=== PATIENT | male | born 1985 | race Caucasian/White ===

== ENCOUNTER 2021-01-07 12:45 | Emergency (ER) | payer SELFPAY ==
[2021-01-07 13:19] VITALS: BP 159/92; PULSE 84; RESP 16; TEMP 36.4; O2SAT 98; BMI 23.6
--- NOTE | 2021-01-07 13:31 | ED_ITS ---
HPI - GI Bleed General: Chief complaint: GI Bleed Stated complaint: blood in stool Time Seen by Provider: 01/07/21 13:22 History of Present Illness: HPI Narrative: 35-year-old male presents emergency room with complaint of 2 episodes of bright red blood per rectum. No history of hemorrhoids no history of previous GI bleed no previous colonoscopy. He does not have any abdominal pain both episodes were painless completely discolored the toilet water. He has not had any vomiting associated with it or any real diarrhea. MD complaint: gross hematochezia Onset (ago): hour(s) Severity: moderate Relieving factors: none Associated symptoms: Denies abdominal pain, chills, easy bruising, epistaxis, fever(s), headache(s), malaise, nausea, other bleeding, poor appetite, rash, syncope, vomiting or weakness Treatments Prior to Arrival: none Review of Systems Const: Denies: fever(s) or malaise ENMT: Denies: epistaxis Card: Denies: syncope Resp: Denies: dyspnea, productive cough or non-productive cough GI: Reports: hematochezia; Denies: abdominal pain, nausea, vomiting or hematemesis : Denies: flank pain, dysuria, urinary frequency or urinary urgency Skin/Breast: Denies: rash Neuro: Denies: headache(s) Jackson/Lymph: Denies: easy bruising PFSH ED PFSH: Social History Smoking and tobacco status: current every day smoker cigarettes Packs smoked per day: 0.5 Alcohol intake: never Substance/Drug Use: never Physical Exam Const: COMMON NORMALS: no acute distress GENERAL APPEARANCE: cooperative and comfortable ORIENTATION/CONSCIOUSNESS: Yes awake, Yes oriented to person, Yes oriented to place and Yes oriented to time HENMT: COMMON NORMALS: normocephalic, atraumatic and hearing grossly normal bilaterally HEAD & SCALP: normocephalic and atraumatic Neck/C-Spine: COMMON NORMALS: no JVD Resp: COMMON NORMALS: normal respiratory effort, No retractions, No use of accessory muscles and clear to auscultation bilaterally AUSCULTATION: clear to auscultation bilaterally Cardio: COMMON NORMALS: no JVD, regular rate, regular rhythm and No murmurs present (Cardio) RATE: regular rate RHYTHM: regular rhythm GI: COMMON NORMALS: Soft to palpation and No hepatosplenomegaly present INSPECTION: No Laceration(s) present (GI) AUSCULTATION: Yes normoactive bowel sounds PALPATION: Yes Soft to palpation, No Tenderness to palpation present (GI), No Guarding due to palpation present (GI) and Yes No hepatosplenomegaly present RECTAL EXAM: Yes visual inspection normal, Yes normal sphincter tone, No hemorrhoids, No Rectal prolapse, No Lesions present (GI), No Fistula present (GI), No Laceration(s) present (GI), No Excoriation present (GI) and No Anal fissure(s) present Extremity: COMMON NORMALS: normal to inspection, capillary refill normal, no clubbing, cyanosis or edema, no calf tenderness and no pedal edema Neuro: SENSORIUM/ORIENTATION: Yes oriented to person, Yes oriented to place and Yes oriented to time Skin: COMMON NORMALS: no rashes or lesions noted GENERAL SKIN EXAM: no rashes or lesions noted Course Vital Signs: Vital signs: Vital Signs Temperature 97.5 F L 01/07/21 13:19 Pulse Rate 84 01/07/21 13:19 Respiratory Rate 16 01/07/21 13:19 Blood Pressure 159/92 01/07/21 13:19 Pulse Oximetry 98 01/07/21 13:19 MDM - GI Bleed MDM Narrative: Medical decision making narrative: Ongoing start him on Cipro and metronidazole for 7 days we will get him set up for a colonoscopy his hem oglobin is stable at this point he does not have any abdominal pain per se. If he has any worsening or change symptoms recheck would likely have him recheck with his primary care doctor within a week sooner if has any continues to have bloody bowel movements. Did advise him to clear liquid diet for 24 to 48 hours and advance as tolerated Lab Data: Labs: Lab Results 01/07/21 01/07/21 Range/Units 13:40 13:40 WBC 7.6 (4.0-10.0) 10^3/ uL RBC 4.68 (4.1-5.3) 10^6/u L Hgb 13.2 (11.7-16.6) g/dL Hct 41.4 L (42.0-52.0) % MCV 88.5 (80-94) fL MCH 28.2 (28.0-34.0) pg MCHC 31.9 (30.0-36.0) g/dL RDW 13.3 (12.1-15.1) % Plt Count 361 (130-400) 10^3/c mm MPV 9.2 (7.4-10.4) fL Neut % (Auto) 55.1 % Lymph % (Auto) 32.8 % [place] % (Auto) 6.5 % Eos % (Auto) 4.4 % Baso % (Auto) 1.1 % Neut # (Auto) 4.18 (1.8-7.7) 10^3/u L Lymph # (Auto) 2.5 (0.8-4.8) 10^3/u L Arthur # (Auto) 0.5 (0.2-0.9) 10^3/u L Eos # (Auto) 0.3 (0.0-0.8) 10^3/u L Baso # (Auto) 0.1 (0.0-0.1) 10^3/u L Nucleated RBC % (a uto) 0 % Nucleated RBCs # 0.0 /100WBC Sodium 135 L (136-145) mmol/L Potassium 4.2 (3.5-5.1) mmol/L Chloride 101 (98-107) mmol/L Carbon Dioxide 25 (22-29) mmol/L Anion Gap 13.2 (5-19) BUN 14 (6-20) mg/dL Creatinine 0.5 L (0.7-1.2) mg/dL GFR Calculation 188.1 H (90-130) mL/min Glucose 87 (65-115) mg/dL Calculated Osmolal ity 280 L (285-295) mOsm/k g Calcium 9.1 (8.5-10.5) mg/dL Total Bilirubin 0.2 (0.15-1.2) mg/dL AST 16 (0-40) U/L ALT 18 (0-41) U/L Alkaline Phosphata se 96 (40-130) IU/L Total Protein 7.1 (6.6-8.7) g/dL Albumin 4.0 (3.5-5.2) g/dL Globulin 3.1 (1.3-4.6) g/dL Lipase 39 (13-60) U/L Discharge Plan Discharge Patient Disposition: Home Clinical Impression: Bright red blood per rectum Condition: Stable Prescriptions: New Cipro 500 mg tablet 500 mg PO BID Qty: 14 RF: 0 metronidazole 500 mg tablet 500 mg PO BID 7 Days Qty: 14 RF: 0 Discharge Orders: Discharge ED (Routine); Ordered 01/07/21 Ordered By: Rustam Ghosh Referrals: Mustapha Swain MD [Primary Care Provider] - Discharge Diet: Clear Liquid Discharge Activity: Resume usual activity Patient Instructions: Opioid Safety Activity Restrictions/Additional Instructions: Clinical diet for 24 to 48 hours then advance as tolerated. Case management will call to set up an appointment for you to get a colonoscopy. Coding Level of Care Code ED Doctor Of Nursing Practice for Marting Fwd Exam Comprehensive
[2021-01-07 13:47] LABS: Basophils # 0.1 10^3/uL (0.0-0.1); Basophils % 1.1 %; Eosinophils # 0.3 10^3/uL (0.0-0.8); Eosinophils % 4.4 %; Hematocrit 41.4 % (42.0-52.0); Hemoglobin 13.2 g/dL (11.7-16.6); Lymphocytes # 2.5 10^3/uL (0.8-4.8); Lymphocytes % 32.8 %; Mean Corpuscular HGB Conc 31.9 g/dL (30.0-36.0); Mean Corpuscular Hemoglobin 28.2 pg (28.0-34.0); Mean Corpuscular Volume 88.5 fL (80-94); Mean Platelet Volume 9.2 fL (7.4-10.4); Monocytes # 0.5 10^3/uL (0.2-0.9); Monocytes % 6.5 %; Neutrophils # 4.18 10^3/uL (1.8-7.7); Neutrophils % 55.1 %; Nucleated Red Blood Cells % 0 %; Platelet Count 361 10^3/cmm (130-400); Red Blood Count 4.68 10^6/uL (4.1-5.3); Red Cell Distribution Width 13.3 % (12.1-15.1); White Blood Count 7.6 10^3/uL (4.0-10.0)
[2021-01-07 14:11] LABS: Alanine Aminotransferase 18 U/L (0-41); Alkaline Phosphatase 96 IU/L (40-130); Anion Gap 13.2 (5-19); Aspartate Amino Transferase 16 U/L (0-40); Blood Urea Nitrogen 14 mg/dL (6-20); Calcium 9.1 mg/dL (8.5-10.5); Carbon Dioxide 25 mmol/L (22-29); Chloride 101 mmol/L (98-107); Globulin 3.1 g/dL (1.3-4.6); Glomerular Filtration Rate 188.1 mL/min (90-130); Glucose 87 mg/dL (65-115); Lipase 39 U/L (13-60); Osmolality Calculated 280 mOsm/kg (285-295); Potassium 4.2 mmol/L (3.5-5.1); Sodium 135 mmol/L (136-145); Total Bilirubin 0.2 mg/dL (0.15-1.2); Total Protein 7.1 g/dL (6.6-8.7)
[2021-01-07] MEDS: sodium chloride 0.9% 1,000 ML 999 ML IV (14:35)
--- NOTE | 2021-01-08 11:37 | DCPLANNER ---
manager validation had message to schedule a follow up appointment for patient with general surgery for a colonoscopy. manager validation emailed patients information to both Jina and Lilibeth at [facility] General Surgery. Patients information will be printed and reviewed. Clinic will call patient with appointment information.
--- NOTE | 2021-01-11 07:56 | DCPLANNER ---
Patient has a follow up appointment scheduled for Thursday, January 14, 2021 at 2:[address] Peck, at [facility] General Surgery. Clinic will call patient with appointment information.
--- NOTE | 2021-01-15 15:40 | DCPLANNER ---
Patient had a follow up appointment scheduled for 01.14.[address] Esteban at general surgery - patient did attend appointment.
== END 2021-01-07 16:00 | disposition home or self-care (01) ==
PROVIDERS: Emergency Provider Family Medicine; PCP Family Medicine
DX: K62.5 Hemorrhage of anus and rectum (principal); F17.210 Nicotine dependence, cigarettes, uncomplicated
CPT/HCPCS: 80053; 83690; 85025; 96360; 99283; J7030

== ENCOUNTER 2021-01-29 12:56 | Emergency (ER) | payer SELFPAY ==
[2021-01-29 13:12] VITALS: BP 129/77; PULSE 106; RESP 16; TEMP 36.6; O2SAT 98; BMI 21.1
--- NOTE | 2021-01-29 13:17 | W.ED.GIBLEED ---
HPI - GI Bleed General: Chief complaint: GI Bleed Stated complaint: BLOOD IN STOOL Time Seen by Provider: 01/29/21 13:00 Source: patient Mode of arrival: ambulatory Limitations: no limitations History of Present Illness: HPI Narrative: Patient is a 35-year-old male who presents to ED today for evaluation of possible GI bleeding. Patient was initially seen a few weeks ago for bright red blood per rectum. He was subsequently referred to Dr. Peck and is currently scheduled to undergo endoscopy/colonoscopy on 02/20. Patient tells me the bright red bleeding only was present for a few days. He states since then he has been having darker red stools. Has also noticed stools are looser than normal. He has absolutely no pain. No fevers. Does feel more fatigued. Complains of some mild dizziness. MD complaint: other (dark red stools) Onset (ago): day(s) Pain Consistency: other (no pain) Relieving factors: none Exacerbating factors: none Associated symptoms: Denies abdominal pain, chills, fever(s), headache(s), malaise, nausea, rash or vomiting Treatments Prior to Arrival: none Review of Systems Const: Reports: fatigue; Denies: fever(s), chills, body aches or malaise Eyes: Denies: change in vision or blurry vision ENMT: Denies: throat pain or odynophagia Card: Denies: chest pain Resp: Denies: dyspnea GI: Reports: hematochezia and other (feels like he needs to defecate more often); Denies: abdominal pain, nausea, vomiting, hematemesis, coffee ground emesis, dysphagia, heartburn, fecal incontinence, pain on defecation, rectal pain, white/light colored stool or steatorrhea : Denies: dysuria or hematuria Musc: Denies: back pain Skin/Breast: Denies: rash Neuro: Reports: dizziness (occasional); Denies: headache(s) PFSH ED PFSH: Social History Smoking and tobacco status: current every day smoker cigarettes Packs smoked per day: 0.5 Alcohol intake: never Physical Exam Const: COMMON NORMALS: no acute distress, average body habitus, patient oriented x3, no limitations, healthy appearing, alert and well nourished GENERAL APPEARANCE: cooperative ORIENTATION/CONSCIOUSNESS: Yes awake, Yes oriented to person, Yes oriented to place and Yes oriented to time HENMT: COMMON NORMALS: normocephalic and atraumatic HEAD & SCALP: normocephalic and atraumatic Eye: COMMON NORMALS: no scleral icterus GENERAL EYE: appearance normal, both eyes and all related structures Resp: COMMON NORMALS: normal respiratory effort and clear to auscultation bilaterally AUSCULTATION: clear to auscultation bilaterally Cardio: COMMON NORMALS: regular rhythm RATE: tachycardic (very mild) RHYTHM: regular rhythm GI: COMMON NORMALS: Normal to inspection, nondistended, normoactive bowel sounds present, Soft to palpation, non-tender, No hepatosplenomegaly present and no masses PALPATION: Yes Soft to palpation and Yes No hepatosplenomegaly present RECTAL EXAM: Yes visual inspection normal and Yes heme negative stool (although no stool palpated ) Extremity: COMMON NORMALS: normal to inspection Neuro: COMMON NORMALS: patient oriented x3 SENSORIUM/ORIENTATION: Yes alert, Yes oriented to person, Yes oriented to place and Yes oriented to time Skin: COMMON NORMALS: no rashes or lesions noted GENERAL SKIN EXAM: no rashes or lesions noted OTHER: no pallor or jaundice noted Course Vital Signs: Vital signs: Vital Signs Temperature 97.9 F 01/29/21 13:12 Pulse Rate 84 01/29/21 13:49 Respiratory Rate 16 01/29/21 13:12 Blood Pressure 125/70 01/29/21 13:49 Pulse Oximetry 98 01/29/21 13:12 MDM - GI Bleed MDM Narrative: Medical decision making narrative: Patient's hemoccult is negative. His hemoglobin is 14 which is higher than his last visit. Remainder of labs are non-concerning. He was mildly tachycardic. His orthostatic blood pressures are normal. He did have a rise in Heart rate however this is not high enough for diagnosis of postural tachycardia. Recommend current plan for endoscopy/colonoscopy with Dr. Peck. Return to ED precautions given. Lab Data: Labs: Lab Results 01/29/21 01/29/21 Range/Units 13:37 13:37 WBC 8.2 (4.0-10.0) 10^3/ uL RBC 4.97 (4.1-5.3) 10^6/u L Hgb 14.0 (11.7-16.6) g/dL Hct 43.7 (42.0-52.0) % MCV 87.9 (80-94) fL MCH 28.2 (28.0-34.0) pg MCHC 32.0 (30.0-36.0) g/dL RDW 13.7 (12.1-15.1) % Plt Count 385 (130-400) 10^3/c mm MPV 9.1 (7.4-10.4) fL Neut % (Auto) 60.4 % Lymph % (Auto) 27.5 % [place] % (Auto) 6.9 % Eos % (Auto) 3.7 % Baso % (Auto) 1.1 % Neut # (Auto) 4.94 (1.8-7.7) 10^3/u L Lymph # (Auto) 2.3 (0.8-4.8) 10^3/u L [place] # (Auto) 0.6 (0.2-0.9) 10^3/u L Eos # (Auto) 0.3 (0.0-0.8) 10^3/u L Baso # (Auto) 0.1 (0.0-0.1) 10^3/u L Nucleated RBC % (a uto) 0 % Nucleated RBCs # 0.0 /100WBC Sodium 134 L (136-145) mmol/L Potassium 4.2 (3.5-5.1) mmol/L Chloride 100 (98-107) mmol/L Carbon Dioxide 23 (22-29) mmol/L Anion Gap 15.2 (5-19) BUN 11 (6-20) mg/dL Creatinine 0.6 L (0.7-1.2) mg/dL GFR Calculation 152.4 H (90-130) mL/min Glucose 100 (65-115) mg/dL Calculated Osmolal ity 277 L (285-295) mOsm/k g Calcium 8.5 (8.5-10.5) mg/dL Total Bilirubin 0.2 (0.15-1.2) mg/dL AST 19 (0-40) U/L ALT 26 (0-41) U/L Alkaline Phosphata se 95 (40-130) IU/L Total Protein 7.6 (6.6-8.7) g/dL Albumin 4.4 (3.5-5.2) g/dL Globulin 3.2 (1.3-4.6) g/dL Discharge Plan Discharge Patient Disposition: Home Clinical Impression: Blood in stool Condition: Stable Prescriptions: No Action No Known Home Medications RF: 0 Discharge Orders: Discharge ED (Routine); Ordered 01/29/21 Ordered By: Selam Kent Activity Restrictions/Additional Instructions: As we discussed continue current plan for endoscopy/colonoscopy with Dr. Peck on 02/20. Return to the emergency department for worsening bleeding, abdominal pain, fevers, or any other concerns you may have. Coding Level of Care Code ED Stripper Black And White for Chg Fwd Exam Comprehensive
[2021-01-29 13:49] VITALS: BP 119/86; BP 125/70; BP 131/90; PULSE 102; PULSE 110; PULSE 84
[2021-01-29 13:49] LABS: Basophils # 0.1 10^3/uL (0.0-0.1); Basophils % 1.1 %; Eosinophils # 0.3 10^3/uL (0.0-0.8); Eosinophils % 3.7 %; Hematocrit 43.7 % (42.0-52.0); Lymphocytes # 2.3 10^3/uL (0.8-4.8); Lymphocytes % 27.5 %; Mean Corpuscular Hemoglobin 28.2 pg (28.0-34.0); Mean Corpuscular Volume 87.9 fL (80-94); Mean Platelet Volume 9.1 fL (7.4-10.4); Monocytes # 0.6 10^3/uL (0.2-0.9); Monocytes % 6.9 %; Neutrophils # 4.94 10^3/uL (1.8-7.7); Neutrophils % 60.4 %; Nucleated Red Blood Cells % 0 %; Platelet Count 385 10^3/cmm (130-400); Red Blood Count 4.97 10^6/uL (4.1-5.3); Red Cell Distribution Width 13.7 % (12.1-15.1); White Blood Count 8.2 10^3/uL (4.0-10.0)
[2021-01-29 14:02] LABS: Alanine Aminotransferase 26 U/L (0-41); Albumin Level 4.4 g/dL (3.5-5.2); Alkaline Phosphatase 95 IU/L (40-130); Anion Gap 15.2 (5-19); Aspartate Amino Transferase 19 U/L (0-40); Blood Urea Nitrogen 11 mg/dL (6-20); Calcium 8.5 mg/dL (8.5-10.5); Carbon Dioxide 23 mmol/L (22-29); Chloride 100 mmol/L (98-107); Globulin 3.2 g/dL (1.3-4.6); Glomerular Filtration Rate 152.4 mL/min (90-130); Glucose 100 mg/dL (65-115); Osmolality Calculated 277 mOsm/kg (285-295); Potassium 4.2 mmol/L (3.5-5.1); Sodium 134 mmol/L (136-145); Total Bilirubin 0.2 mg/dL (0.15-1.2); Total Protein 7.6 g/dL (6.6-8.7)
[2021-01-29 15:30] VITALS: BP 110/67; PULSE 72; RESP 16; O2SAT 99
== END 2021-01-29 15:31 | disposition home or self-care (01) ==
PROVIDERS: Emergency Provider Physician Assistant
DX: K92.1 Melena (principal); F17.210 Nicotine dependence, cigarettes, uncomplicated
CPT/HCPCS: 80053; 85025; 99282

== ENCOUNTER → 2021-02-18 09:34 | Outpatient (BNVA) | payer SELFPAY | PROVIDERS: Visit Provider Surgery | DX: Z20.822 Contact with and (suspected) exposure to COVID-19 (principal); K62.5 Hemorrhage of anus and rectum | CPT/HCPCS: 87635 ==

== ENCOUNTER 2021-02-20 10:15 | Day surgery (SDC) | payer SELFPAY ==
[2021-02-19 10:04] VITALS: BMI 21.1
--- NOTE | 2021-02-20 10:42 | ANES.PREANE2 ---
Pre-Anesthetic Assessment Pre-Anesthetic Assessment: Height/Weight: Height 1.85 m Weight 72.575 kg Preop Diagnosis: Bleeding per rectum Proposed Procedure: Operation Date: 02/20/21 12:00 Proposed Procedures p EGD [id number] k62.5(Not Applicable) - Nick Peck MD s Colonoscopy(Not Applicable) - Nick Peck MD Was Beta Luis Fernando taken within 24 hours: N/A Was Clonidine taken within 24 hours: N/A Social: Social History: Tobacco and No alcohol Exam: Pre-Anes Outpt Exam: alert, oriented x 3, clear to auscultation bilaterally and regular rate & rhythm Airway: Submandibular: WNL Cervical ROM: WNL MP: 2 Dentition: Full History/ROS: No significant history except as noted Anesthetic Plan: ASA status: 2 Anesthesia: MAC Risk of > 500 ml blood loss (7ml/kg in children): No PFSH Anesthesia PFSH: Social History Smoking and tobacco status: current every day smoker cigarettes Packs smoked per day: 0.5 Alcohol intake: never Data Anesthesia Cardiac Studies: No Data to Display
[2021-02-20 10:53] VITALS: BP 130/87; PULSE 74; RESP 16; TEMP 36.3; O2SAT 98
[2021-02-20] MEDS: sodium chloride 0.9% 1,000 ML 30 ML IV (11:03)
--- NOTE | 2021-02-20 12:06 | P.HP_ITS ---
Same Day Surgery H&P Indication for Procedure/HPI DATE OF PROCEDURE: February 20, 2021 CHIEF COMPLAINT/INDICATIONFOR SURGICAL PROCEDURE: Bleeding per rectum PREOP DIAGNOSIS: Bleeding per rectum PLANNED PROCEDRUE: Operation Date: 02/20/21 12:00 Proposed Procedures p EGD [id number] k62.5(Not Applicable) - Nick Peck MD s Colonoscopy(Not Applicable) - Nick Peck MD This is a pleasant 35 years old gentleman presents with history of bleeding per rectum for the past week or so. Describes it as bright red blood . Denies history of colon cancer or inflammatory bowel disease, reports that his mom had history of multiple sclerosis and ovarian cancer. Never had this episode before. Patient was seen in the emergency department and was referred to my practice for further evaluation and potential endoscopy, rectal examination was done in the emergency department and that was reported as within normal limits. Interim history 02/20/2021 Patient comes today for diagnostic EGD and colonoscopy also patient comes today with concern about unintentional weight loss. ROS All systems have been reviewed negative except as per the above or per problem list Medications/Allergies* Home Medications Medication Instructions Recorded Confirmed Type No Known Home Medications 01/29/21 02/20/21 History Allergies/Adverse Reactions Allergy/AdvReac Type Severity Reaction Status Date / Time No Known Allergies Allergy Verified 02/20/21 12:07 Current Medications: Generic Name Dose Route Start Last Admin Trade Name Freq PRN Reason Stop Dose Admin Sodium Chloride 1,000 mls @ 30 mls/hr 02/20/21 10:30 02/20/21 11:03 Sodium Chloride 0.9% IV 02/21/21 10:29 30 mls/hr .Q24H OBED Administration Pertinent History/Comorbid Conditions* Social History Smoking and tobacco status: current every day smoker cigarettes Packs smoked per day: 0.5 Alcohol intake: never Pertinent Exam Findings alert, oriented x 3, clear to auscultation bilaterally, regular rate & rhythm and procedure specific exam findings (Abdominal examination nontender nondistended soft) Recommendations Surgery/Procedure today (Diagnostic EGD and colonoscopy) Other Plans: Plan of care; After thorough history and physical examination and reviewing the chart, plan to perform a diagnostic esophagogastroduodenoscopy and diagnostic colonoscopy with possible biopsy and possible polypectomy. I discussed with the patient in detail the risks,benefits,alternatives and indications.The risk of aspiration, bleeding, soft tissue injury, perforation of the stomach/esophagus/colon and other potential concomitant complications were explained to the patient in details also the potential need for Thoracotomy and or Laproscoy/Laparotomy to repair any related complications including but not limited to colectomy and or Closotomy. The patient understood this well and did agree to proceed. Rationale was carefully and clearly discussed with the patient.Appropriate informed consent have been reviewed and signed Verbal and written Instructions were given to the patient for colonoscopy prep Coding Level of Care Code Acute Transformer Builder for Shaneka Schulz
[2021-02-20 13:40] VITALS: BP 108/72; PULSE 81; RESP 18; TEMP 36.3; O2SAT 97
[2021-02-20 13:55] VITALS: BP 117/73; PULSE 78; RESP 18; O2SAT 98
--- NOTE | 2021-02-20 15:37 | ANE.PACU2 ---
Inpatient post-anesthesia follow up: Airway intact: Yes Vital signs: Temperature 97.4 F Pulse Rate 78 Respiratory Rate 18 Blood Pressure 117/73 Pulse Oximetry 98 Oxygen Delivery Me thod Room Air Oxygen Flow Rate Fraction of Inspir ed Oxygen Hydration adequate: Yes Nausea and vomiting: No Pain level: 1 Mental status: Baseline
[2021-02-21 07:55] LABS: H. Pylori / CLO Test Negative
== END 2021-02-20 14:05 | disposition home or self-care (01) ==
PROVIDERS: Visit Provider Surgery
PROC: 0DJ08ZZ Inspection of Upper Intestinal Tract, Via Natural or Artificial Opening Endoscopic (ICD-10-PCS; CPT 43235; principal; 2021-02-20 12:00)
PROC: 0DJD8ZZ Inspection of Lower Intestinal Tract, Via Natural or Artificial Opening Endoscopic (ICD-10-PCS; CPT 45378; 2021-02-20 12:00)
DX: K62.5 Hemorrhage of anus and rectum (principal); K21.00 Gastro-esophageal reflux disease with esophagitis, without bleeding; K29.70 Gastritis, unspecified, without bleeding; F17.210 Nicotine dependence, cigarettes, uncomplicated
CPT/HCPCS: 43239; 45378; 87077; 96360; 96361; J2704; J7030

== ENCOUNTER → 2021-07-05 15:41 | Outpatient (BNVA) | payer OTHER, SELFPAY | PROVIDERS: Visit Provider Registered Nurse Neonatal Intensive Care | DX: J02.0 Streptococcal pharyngitis (principal); Z20.822 Contact with and (suspected) exposure to COVID-19 | CPT/HCPCS: 87635 ==

== ENCOUNTER → 2021-08-17 14:51 | Outpatient (BNVA) | payer OTHER, SELFPAY | PROVIDERS: Visit Provider Registered Nurse Neonatal Intensive Care | DX: Z20.822 Contact with and (suspected) exposure to COVID-19 (principal) | CPT/HCPCS: 87635 ==

== ENCOUNTER 2024-04-06 18:02 | Emergency (ER) | payer SELFPAY ==
[2024-04-06 18:15] VITALS: BP 125/75; PULSE 91; RESP 16; TEMP 36.9; O2SAT 95
--- NOTE | 2024-04-06 18:16 | W.ED.UPPEXIN ---
HPI - Extremity Injury (Upper) General: Chief Complaint: Wound/Laceration Stated Complaint: Cut Left Hand Index Finger Time Seen by Provider: 04/06/24 18:15 History of Present Illness: 38-year-old male patient comes in today for injury to the left index finger. 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 Patient has a 2 cm skin flap to the distal left index finger. Patient has normal range of motion of the finger. Patient appears nontoxic. Patient appears in mild pain. Review of Systems General: Reports: 10 or more systems reviewed and unremarkable except in HPI and below Skin/Breast: Reports: new lesions PFS ED PFSH: Social History Smoking and tobacco/nicotine status: current every day tobacco/nicotine user cigarettes Packs smoked per day: 0.5 Alcohol intake: never Substance/Drug Use: never Physical Exam Const: COMMON NORMALS: alert HENMT: COMMON NORMALS: normocephalic HEAD & SCALP: normocephalic Neck/C-Spine: COMMON NORMALS: full ROM Resp: COMMON NORMALS: normal respiratory effort Cardio: COMMON NORMALS: regular rate RATE: regular rate Back/Pelvis: COMMON NORMALS: thoracic and lumbar spine normal to inspection Extremity: LEFT UPPER EXTREMITY: Yes hand & digits (2 cm flap laceration left index finger distal) Left hand and digits: Yes ROM, Yes neurovascular exam and Yes tendon exam Neuro: SENSORIUM/ORIENTATION: Yes alert Skin: NARRATIVE SKIN EXAM: 2 cm curved laceration distal left index finger TRAUMA: laceration (Left index finger) flap Procedures Laceration Laceration 1: Site: hand Side (If applicable): left Size (cm): 2 Description: flap Depth: simple, single layer Local Anesthetic: lidocaine 2% and with epi Amount of anesthesia used (mL): 2 Pre-repair: wound explored and irrigated extensively Skin layer closed with: nylon Size (cm): 5-0 Number of sutures: 4 Technique: simple, interrupted Course Vital Signs: Vital signs: Vital Signs Temperature 98.5 F 04/06/24 18:15 Pulse Rate 70 04/06/24 18:31 Respiratory Rate 16 04/06/24 18:15 Blood Pressure 111/70 04/06/24 18:31 Pulse Oximetry 94 04/06/24 18:31 Oxygen Delivery Me thod Room Air 04/06/24 18:31 MDM - Extremity Injury (Upper) Medical Decision Making 38-year-old male patient comes in today for injury to the left index finger. On exam patient has a laceration to the distal left index finger. Cap refill is intact. Normal range of motion of the fingers noted. 2 cm flap laceration is noted. No foreign body or fractures noted. Differential diagnosis need for prophylaxis tetanus, need for prophylaxis antibiotics, laceration, foreign body, fracture. Wound was repaired with 4 sutures. Patient tolerated well. No foreign body or fractures noted. Reviewed postprocedure care and instructions with patient and family who reported understanding and agreed to plan. No radiology studies performed this visit Discharge Plan Discharge Patient Disposition: Home Clinical Impression: Laceration of finger of left hand Qualifiers: Encounter type: initial encounter Finger: index finger Damage to nail status: without damage Foreign body presence: without foreign body Qualified Code(s): S61.211A - Laceration without foreign body of left index finger without damage to nail, initial encounter Condition: Stable Prescriptions: New cephalexin 500 mg capsule 500 mg PO BID 7 Days Qty: 14 0RF No Action amoxicillin-pot clavulanate [Augmentin] 875-125 mg tablet 1 tab PO BID 7 Days Qty: 14 0RF Protonix 40 mg tablet,delayed release (DR/EC) 40 mg PO DAILY 30 Days Qty: 30 2RF Discharge Orders: Discharge ED (Routine); Ordered 04/06/24 Ordered By: Bakari Stoner Discharge Diet: Usual diet Discharge Activity: Increase activity as tolerated Patient Instructions: Finger Laceration (ED) Activity Restrictions/Additional Instructions: Keep wound clean and dry. Is very important keep the wound as dry as possible for the next 48 hours. Then also try to keep the wound from being submerged under water for long periods of time. After the wound is wet dry it thoroughly and redressed for protection. You may leave the wound to air after 48 hours as long as it can stay clean. Sutures need to come out in 7 to 10 days. Follow-up with primary care in 1 week. Take antibiotics for prophylaxis. Coding Level of Care Code ED Sales Training Representative for Shaneka Schulz
[2024-04-06 18:31] VITALS: BP 111/70; PULSE 70; O2SAT 94
[2024-04-06] MEDS: cephALEXin 500 mg Capsule PO (18:56)
== END 2024-04-06 18:59 | disposition home or self-care (01) ==
PROVIDERS: Emergency Provider Nurse Practitioner Family
DX: S61.211A Laceration without foreign body of left index finger without damage to nail, initial encounter (principal); W26.0XXA Contact with knife, initial encounter; Y93.G1 Activity, food preparation and clean up; Y92.511 Restaurant or cafe as the place of occurrence of the external cause; Y99.0 Civilian activity done for income or pay; F17.210 Nicotine dependence, cigarettes, uncomplicated
CPT/HCPCS: 12001; 99283